=== PATIENT | male | born 1965 ===

== ENCOUNTER 2023-04-19 17:28 | Emergency (ER) | payer MEDICAID ==
[2023-04-19] MEDS ORDERED: Sodium Chloride 0.9% 10 ML Syringe FLUSH PRN (17:54)
[2023-04-19 18:06] LABS: BASOPHILS ABSOLUTE AUTO 0.04 K/uL (0.00-0.20); BASOPHILS PERCENT AUTO 0.2 % (0.0-2.0); EOSINOPHILS ABSOLUTE AUTO 0.35 K/uL (0.00-0.50); EOSINOPHILS PERCENT AUTO 1.9 % (0.0-5.0); HEMATOCRIT 40.6 % (39.0-49.0); HEMOGLOBIN 13.4 g/dL (13.1-16.8); LYMPHOCYTES ABSOLUTE AUTO 2.79 K/uL (0.50-3.50); LYMPHOCYTES PERCENT AUTO 15.1 % (10.0-50.0); MEAN CORPUSCULAR VOLUME 96.9 fL (84.0-98.0); MONOCYTES ABSOLUTE AUTO 0.86 K/uL (0.00-1.00); MONOCYTES PERCENT AUTO 4.6 % (2.0-14.0); NEUTROPHILS ABSOLUTE AUTO 14.47 K/uL (1.40-7.00); NEUTROPHILS PERCENT AUTO 78.2 % (45.0-80.0); PLATELET COUNT,PLT 255 K/uL (150-350); RED BLOOD CELL COUNT 4.19 M/uL (4.33-5.41); RED CELL DISTRIBUTION WIDTH 14.2 % (11.2-14.1); WHITE BLOOD CELL COUNT,WBC 18.5 K/uL (4.0-10.2)
[2023-04-19 18:12] LABS: CREATINE KINASE,CK 96 U/L (26-308)
[2023-04-19 18:22] LABS: ALBUMIN 3.3 g/dL (3.4-5.0); BILIRUBIN TOTAL 0.2 mg/dL (0.2-1.0); CALCIUM 8.9 mg/dL (8.5-10.1); CREATININE 1.13 mg/dL (0.51-1.17); EST CRCL DRUG DOSING (CG) 71.46 mL/min; MAGNESIUM 1.4 mg/dL (1.8-2.4); POTASSIUM,K 4.3 mmol/L (3.5-5.1); PROTEIN TOTAL,TP 6.6 g/dL (6.4-8.2)
[2023-04-19] MEDS ORDERED: Magnesium Sulfate/Water 2 GM in Premix Bag 1 BAG IV ONE (18:43)
[2023-04-19] MEDS ORDERED: Sodium Chloride 0.9% 1,000 ML IV ONE (18:44)
[2023-04-19 19:00] LABS: APPEARANCE,URINE CLEAR; BILIRUBIN,URINE NEGATIVE (NEGATIVE); COLOR,URINE YELLOW; GLUCOSE,URINE 250 mg/dL (NEGATIVE); KETONES,URINE NEGATIVE (NEGATIVE); LEUKOCYTE ESTERASE,URINE NEGATIVE (NEGATIVE); NITRITE,URINE NEGATIVE (NEGATIVE); OCCULT BLOOD,URINE TRACE-INTACT (NEGATIVE); PROTEIN,URINE 30 mg/dL (NEGATIVE); UROBILINOGEN,URINE 0.2 E.U./dL (0.2-1.0)
[2023-04-19 19:02] LABS: BACTERIA,URINE NOT SEEN /HPF (NONE TO FEW); EPITHELIAL CELLS,URINE RARE /LPF; MUCUS,URINE RARE /LPF (NEGATIVE); RBC,URINE 0-5 /HPF; WBC,URINE 0-5 /HPF
[2023-04-19] MEDS ORDERED: Magnesium Oxide 400 MG Tab PO ONE (21:32)
== END 2023-04-19 22:00 | disposition home or self-care (01) ==
LOC: LL.ED 17:28
DX: G25.3 Myoclonus (principal); R20.0 Anesthesia of skin; E83.42 Hypomagnesemia; R74.02 Elevation of levels of lactic acid dehydrogenase [LDH]; F17.210 Nicotine dependence, cigarettes, uncomplicated; I25.2 Old myocardial infarction; I10 Essential (primary) hypertension; E11.9 Type 2 diabetes mellitus without complications
CPT/HCPCS: 36415; 70450; 71045; 80053; 80307; 81001; 82550; 83605; 83735; 83880; 84484; 85025; 85610; 93005; 93010; 96361; 96365; 99284; 99284-25; A9270-GY; J3475; J7030